=== PATIENT | female | born 1945 | race Caucasian/White ===

== ENCOUNTER 2018-12-30 13:19 | Outpatient (CLI) | payer MEDICARE | END 2018-12-30 13:20 | disposition EMS.NT | LOC: EMS 13:19 | PROVIDERS: ATTEND Surgery | DX: S01.01XA Laceration without foreign body of scalp, initial encounter (principal); W10.8XXA Fall (on) (from) other stairs and steps, initial encounter; Y92.814 Boat as the place of occurrence of the external cause ==

== ENCOUNTER 2018-12-30 17:21 | Outpatient (CLI) | payer MEDICARE | END 2018-12-30 17:22 | disposition critical access hospital (66) | LOC: EMS 17:21 | PROVIDERS: ATTEND Surgery | DX: S01.01XA Laceration without foreign body of scalp, initial encounter (principal); W18.30XA Fall on same level, unspecified, initial encounter; Y92.814 Boat as the place of occurrence of the external cause | CPT/HCPCS: A0425; A0429 ==

== ENCOUNTER 2018-12-30 18:00 | Emergency (ER) | payer MEDICARE ==
--- NOTE | 2018-12-30 20:33 | ED Physician Documentation ---
PD HPI Fall - Stated complaint Stated Complaint: GLF - Chief complaint Chief Complaint: Trauma Hd/Nk - History obtained from History obtained from: Patient - History of Present Illness Mechanism of injury: Slipped Fall distance: Standing position Where injury occurred: Other (On her boat) Timing - onset: Today (5 hours prior to presentation) Injury(ies) location: Head, Back Associated symptoms: No: LOC, Amnesia, Seizures, Neck pain, Weakness, Paresthesias, Nausea / vomiting Contributing factors: No: Anticoagulated Recently seen: Not recently seen - Additional information Additional information: This is a 73-year-old woman who presents with her complains that she was walking down the steps of her boat and she slipped on the bottom step her feet went out from underneath of her she landed on her butt in the boat and fell back and hit her back against the step and hit the back of her head. She was bleeding from a wound on the back of her head thickening really see the wound this was around 1:00 in the afternoon and they went home and it was still oozing at 5:00 this evening so they decided that she should come in. She did not pass out. She did had some initial neck pain but that is now completely gone denies any numbness or tingling into the arms or legs. Known extremity injury. No blurry or double vision. She has not been nauseous. She also hit her back and it sore gotten more stiff and sore waiting to be seen. She denies any hematuria. She is up-to-date on her vaccines. Review of Systems : denies: Hematuria Skin: reports: Laceration (s) Musculoskeletal: reports: Back pain. denies: Neck pain Neurologic: reports: Head injury PD PAST MEDICAL HISTORY - Past Medical History Past Medical History: Yes Cardiovascular: None Respiratory: Sleep apnea Neuro: None Endocrine/Autoimmune: None GI: None ENGLISH LANGUAGE LEARNER TUTOR: None : None HEENT: None Psych: None Musculoskeletal: Osteoarthritis Derm: None - Past Surgical History Past Surgical History: Yes General: Appendectomy /ENGLISH LANGUAGE LEARNER TUTOR: Other HEENT: Tonsil/Adenoidectomy Derm: Other - Allergies Allergies/Adverse Reactions: Allergies Allergy/AdvReac Type Severity Reaction Status Date / Time Unable to Assess Allergy Verified 12/30/18 18:08 - Social History Does the pt smoke?: No Smoking Status: Never smoker Does the pt drink ETOH?: Yes Does the pt have substance abuse?: No - Immunizations Immunizations are current?: Yes PD ED PE NORMAL - Vitals Vital signs reviewed: Yes - General General: Alert and oriented X 3, No acute distress, Well developed/nourished - HEENT HEENT: PERRL, EOMI, Other (There is an approximate 1 cm laceration that superficial overlying a small hematoma on the occipital scalp. There is still just a tiny bit of oozing blood from the wound.) - Neck Neck: No bony TTP - Back Back: Other (There is some bruising to the left of the thoracolumbar junction in the back with small bit of swelling.) - Neuro Neuro: Alert and oriented X 3, stone carriage operator 2-12 intact, No motor deficit, No sensory deficit, Normal speech Results - Vitals Vitals: Vital Signs - 24 hr 12/30/18 12/30/18 18:08 20:10 Temperature 37.1 C Heart Rate 70 62 Respiratory 15 14 Rate Blood Pressure 142/77 H 141/86 H O2 Saturation 98 98 Oxygen O2 Source Room air Procedures - Laceration (location) Scalp Wound type: Linear Wound Preparation: Hibiclens Skin layer closure: Dermabond (The hair was tied over the laceration taut and Dermabond was applied to the knot.) Other: Patient tolerated well, Tetanus UTD Complexity: Simple Departure - Departure Disposition: 01 Home, Self Care Clinical Impression: Laceration Contusion Qualifiers: Encounter type: initial encounter Contusion area: thoracic wall Contusion of thoracic wall detail: back wall of thorax Laterality: left Qualified Code(s): S20.222A - Contusion of left back wall of thorax, initial encounter Laceration of scalp Qualifiers: Encounter type: initial encounter Qualified Code(s): S01.01XA - Laceration without foreign body of scalp, initial encounter Condition: Good Instructions: ED Laceration Ext Skin Glue Follow-Up: doctor,your [Other] Comments: You may shower and gently wash the area but do not apply any antibiotic ointment. After the hair is grown out you can trim those few hairs that we tied together or apply antibiotic ointment is loose in the glue after 5 days. Ice her lower back Tylenol or ibuprofen if needed for pain.
[2018-12-30 21:18] VITALS: BP 136/78
== END 2018-12-30 21:17 | disposition home or self-care (01) ==
LOC: ED 18:00
DX: S01.01XA Laceration without foreign body of scalp, initial encounter (principal); S00.03XA Contusion of scalp, initial encounter; S20.222A Contusion of left back wall of thorax, initial encounter; M54.2 Cervicalgia; V93.33XA Fall on board other powered watercraft, initial encounter; Y92.814 Boat as the place of occurrence of the external cause
CPT/HCPCS: 12001; 99283